=== PATIENT | male | born 1985 | race Caucasian/White ===

== ENCOUNTER 2019-06-12 11:58 | Inpatient (IN) | payer SELFPAY ==
[2019-06-12] MEDS ORDERED: cefTRIAXone\\ROCEPHIN 2 GM VIAL ONE (12:53)
[2019-06-12] MEDS ORDERED: Sodium Chloride 0.9% 100 ML ONE (12:54)
[2019-06-12 13:12] LABS: Hemoglobin 18.1 g/dL (14.0-18.0); Mean Corpuscular HGB CONC 35.6 g/dL (32.0-36.0); Mean Corpuscular Hemoglobin 32.3 pg (27.0-31.0); Mean Corpuscular Volume 90.7 fL (78.0-98.0); Mean Platelet Volume 9.1 fL (7.4-10.4); Platelet Count 165 thou/uL (130-400); RBC Distribution Width 11.3 % (11.5-14.5); White Blood Cell (WBC) Count 23.8 thou/uL (4.8-10.8)
[2019-06-12 13:25] LABS: Bacteria/HPF None Seen HPF (None Seen); Bilirubin Negative (Negative); Blood, Urine 1+ (Negative); Clarity Clear (Clear); Glucose, Urine (Dipstick) Normal (Negative); Leukocyte Negative Leu/uL (Negative); Nitrite Negative (Negative); Protein, Urine (Dipstick) 100 mg/dL (Neg-Trace); RBC/HPF 0-3 HPF (0-3); Squamous Epithelial 0-3 HPF (0-3); Urobilinogen Normal mg/dL (Less than 2); WBC/HPF 0-3 HPF (0-3)
[2019-06-12 13:31] LABS: Band 18 % (5-11); Lymphocytes 7 % (21-51); MDiff Complete? YES; Monocytes 2 % (0-10); Neutrophil 73 % (42-75); Platelet Morphology Comment Appears Adequate; RBC Morphology Normal
--- NOTE | 2019-06-12 13:41 | RAD ---
SINGLE VIEW OF THE CHEST: COMPARISON: None. HISTORY: Sepsis. FINDINGS: Single view of the chest shows a normal sized cardiomediastinal silhouette. There is no evidence of c onsolidation, mass, or pleural effusion. The bones are unremarkable. IMPRESSION: No evidence of acute cardiopulmonary disease. POS: CET
[2019-06-12 13:49] LABS: ALT (SGPT) 66 U/L (8-55); AST (SGOT) 40 U/L (5-34); Albumin 4.7 g/dL (3.5-5.0); Alkaline Phosphatase 135 U/L (40-110); Anion Gap 14 mmol/L (10-20); BUN (Urea Nitrogen) 16 mg/dL (8.9-20.6); Bilirubin, Total 1.5 mg/dL (0.2-1.2); Calc. Creatinine Clearance 0 mL/min (70-130); Calcium 10.2 mg/dL (7.8-10.44); Carbon Dioxide 27 mmol/L (22-29); Chloride 97 mmol/L (98-107); Estimated GFR-MDRD 69; Globulin 4.5 g/dL (2.4-3.5); Glucose 108 mg/dL (70-105); Potassium 3.8 mmol/L (3.5-5.1); Protein, Total 9.2 g/dL (6.0-8.3); Sodium 134 mmol/L (136-145)
[2019-06-12] MEDS ORDERED: Ondansetron ODT 4 MG TAB SL PRN (15:51)
[2019-06-12] MEDS ORDERED: Acetaminophen 325 MG TAB PO PRN (15:51)
[2019-06-12] MEDS ORDERED: Ondansetron PF 4 MG/2 ML Vial IVP PRN ×2 (15:51→16:59)
[2019-06-12 15:55] VITALS: BMI 28.9
[2019-06-12] MEDS: Sodium Chloride 0.9% 1,000 ML IV SCH ×4 (16:11→23:05)
[2019-06-12] MEDS ORDERED: Ondansetron ODT 4 MG TAB PO PRN (16:59)
[2019-06-12] MEDS: Acetaminophen 650 MG/20.3 ML UDCUP PO PRN (17:25)
[2019-06-12] MEDS: Piperacillin/Tazobactam 3.375 GM in Sodium Chloride 0.9% 100 ML IVPB SCH ×2 (17:29→22:59)
[2019-06-12 18:18] LABS: HBCM Index 0.08 S/CO (0-0.79); HBSAg Index 0.19 S/CO (0-0.99); HIV (1/2) Antibody/Antigen Non-Reactive (NonReactive); Hep A IgM AB Non-Reactive (NonReactive); Hep B Surf Ag Non-Reactive S/CO (NonReactive); Hep C IgG Ab Non-Reactive (NonReactive); Hep C Index 0.09 S/CO (0-0.79); Hepatitis B Core IgM Abs Non-Reactive (NonReactive)
--- NOTE | 2019-06-12 21:52 | HP ---
PRIMARY CARE PHYSICIAN: The patient currently does not have a primary care physician. CHIEF COMPLAINT: Pain and swelling in the left leg. HISTORY OF PRESENT ILLNESS: Mr. Oneill is a pleasant 33-year-old gentleman who has no known past medical history. He says that on last Saturday, he was helping to put a sign out in the front of his workplace when he stepped into some ants and he says that he got quite a few ant bites on his legs. Prior to that, he says he was healthy and doing fine. He says then the next day the "venom started to burst and go up into his leg and he noticed severe pain that began to radiate up into his thigh." He also started having fever as well. He also noted a soreness in his throat and he thought he might be having a laryngitis. He has also noted a poor appetite and then noticed redness in his calf as well. As a result of these symptoms, he came to the ER for evaluation. In the ER, he was noted to have severe swelling and redness of the left lower extremity. He was also found to have an elevated white blood cell count and fever and is being admitted with cellulitis and sepsis. The patient otherwise has no other complaints other than he has lots of allergies. He says he is allergic to all types of insects and is allergic to medications that are in a powdered form and he says he is also allergic to Benadryl. REVIEW OF SYSTEMS: All systems were reviewed and are negative except for that mentioned in the history of present illness. PAST MEDICAL HISTORY: Negative. PAST SURGICAL HISTORY: Also negative. ALLERGIES: TO INSECTS AND BENADRYL AND POWDERED MEDICATIONS. SOCIAL HISTORY: He is , has 2 children. 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 He is a former smoker. He quit about 4 years ago. Prior to that, he smoked 3-4 cigarettes a day. He also admits to drinking about 2 beers a day. He denies any illicit drug use. FAMILY HISTORY: His mother had cancer, lung cancer and he says she was a heavy smoker, also had cirrhosis. CURRENT MEDICATIONS: None. Other than he did take a 24 hour Claritin and 200 mg ibuprofen. PHYSICAL EXAMINATION: GENERAL: He is alert and oriented. He appears to be in no acute distress. He is well developed and well nourished. VITAL SIGNS: Blood pressure was 111/69, heart rate 114, respiratory rate of 18, O2 sats 95% on room air, temperature is 102.8. HEENT: Pupils are equal, round, and reactive to light. Extraocular muscles are intact. His sclerae anicteric. Throat there is no erythema. No exudates. NECK: No adenopathy, no bruits. LUNGS: Clear to auscultation. There is no wheezing, no rales, no rhonchi. CARDIOVASCULAR: He has a normal S1 and S2. There is no S3 or S4. No murmurs, clicks, or rubs. ABDOMEN: Soft, nontender, and nondistended. Positive for bowel sounds. There is no rebound, no guarding, no organomegaly. EXTREMITIES: He has significant redness on the entire calf and he has some streaking into the medial thigh. The area is warm and blanchable. He does have palpable dorsalis pedis and posterior tibial pulses. There is no joint effusions or swelling or redness. NEUROLOGIC: The exam is nonfocal. MUSCULOSKELETAL: With the swelling and redness of the left lower extremity, no other significant skin lesions. LABORATORY DATA: White blood cell count is 23.8, hemoglobin 18.1, hematocrit is 50.8, and platelet count is 165. Sodium 134, potassium 3.8, chloride is 97, CO2 is 27, BUN of 16, creatinine 1.23, glucose is 108, total bilirubin was 1.5, AST is 40, ALT is 66, alkaline phosphatase is 135, total protein 9.2. Urinalysis was negative. Chest x-ray has no significant abnormalities. ASSESSMENT: Mr. Oneill is a 33-year-old gentleman who presents with the acute onset of left lower extremity swelling and redness. He has fever and elevated white count and likely this represents a cellulitis with sepsis. What unusual is how extensive the area is and the severity in a patient who has no known past prior medical history. He also has elevated liver function tests as well. He will be admitted to the medical floor, started on IV antibiotics. We will start broad given his symptomatology and broaden the Rocephin to Zosyn. We will also check a hepatitis panel given the increased liver function tests and human immunodeficiency virus, although human immunodeficiency virus or acquired immunodeficiency syndrome is unlikely. Follow up on blood culture results. He will also be placed on IV hydration given his sepsis syndrome. Further recommendations to follow. Job ID: [id number]
[2019-06-13] MEDS: Acetaminophen 650 MG/20.3 ML UDCUP PO PRN ×2 (00:14→23:21)
[2019-06-13] MEDS: Vancomycin HCl 1.25 GM in Sodium Chloride 0.9% 250 ML 250 ML IVPB SCH ×2 (00:16→13:33)
[2019-06-13] MEDS ORDERED: Vancomycin HCl 1 GM in Premix Bag 1 BAG IVPB SCH (01:00)
[2019-06-13] MEDS: Piperacillin/Tazobactam 3.375 GM in Sodium Chloride 0.9% 100 ML IVPB SCH ×4 (05:15→23:21)
[2019-06-13 06:22] LABS: INR-International Normal Ratio 1.2; Prothrombin Time 15.4 SEC (12.0-14.7)
[2019-06-13 06:41] LABS: Band 7 % (5-11); Hemoglobin 13.7 g/dL (14.0-18.0); Hypochromia SLIGHT = 6-15 cells (100X) (0-5/hpf); Lymphocytes 5 % (21-51); MDiff Complete? YES; Mean Corpuscular Hemoglobin 31.2 pg (27.0-31.0); Mean Corpuscular Volume 91.6 fL (78.0-98.0); Mean Platelet Volume 9.2 fL (7.4-10.4); Monocytes 12 % (0-10); Neutrophil 76 % (42-75); Platelet Count 145 thou/uL (130-400); Platelet Morphology Comment Appears Adequate; RBC Distribution Width 11.2 % (11.5-14.5); Red Blood Cell (RBC) Count 4.41 mill/uL (4.70-6.10); White Blood Cell (WBC) Count 18.6 thou/uL (4.8-10.8)
[2019-06-13 06:42] LABS: ALT (SGPT) 76 U/L (8-55); AST (SGOT) 59 U/L (5-34); Albumin 3.4 g/dL (3.5-5.0); Alkaline Phosphatase 105 U/L (40-110); Anion Gap 10 mmol/L (10-20); BUN (Urea Nitrogen) 10 mg/dL (8.9-20.6); Bilirubin, Total 0.9 mg/dL (0.2-1.2); Calc. Creatinine Clearance 140 mL/min (70-130); Calcium 8.3 mg/dL (7.8-10.44); Carbon Dioxide 25 mmol/L (22-29); Chloride 105 mmol/L (98-107); Estimated GFR-MDRD Greater than 90; Globulin 3.2 g/dL (2.4-3.5); Glucose 103 mg/dL (70-105); Potassium 4.1 mmol/L (3.5-5.1); Protein, Total 6.6 g/dL (6.0-8.3); Sodium 136 mmol/L (136-145)
[2019-06-13] MEDS: Enoxaparin Sodium 40 MG/0.4 ML SYRINGE SC SCH (08:23)
[2019-06-13] MEDS: Sodium Chloride 0.9% 1,000 ML IV SCH ×2 (12:36→17:03)
[2019-06-13 12:59] LABS: Vancomycin, Trough 4.1 ug/mL
--- NOTE | 2019-06-13 16:51 | PDOC.HOSPP ---
- Subjective Encounter Date: 06/13/19 Encounter Time: 16:49 Subjective: Mr. Oneill was seen today in follow-up of cellulitis with sepsis. He does not have any new complaints. - Objective Vital Signs & Weight: Vital Signs (12 hours) Temp Pulse Resp BP Pulse Ox 06/13/19 16:32 99.2 F 103 H 16 114/71 97 06/13/19 12:00 99.6 F 99 16 104/69 95 06/13/19 08:15 99.3 F 86 20 106/71 95 06/13/19 08:00 95 Weight Admit Weight 196 lb Weight 196 lb I&O: 06/12/19 06/13/19 06/14/19 06:59 06:59 06:59 Intake Total 2300 Output Total 1500 Balance 800 Result Diagrams: 06/13/19 06:02 06/13/19 06:02 Hospitalist ROS - Medication Medications: Active Medications Generic Name Dose Route Start Last Admin Trade Name Freq PRN Reason Stop Dose Admin Acetaminophen 650 mg 06/12/19 16:44 06/13/19 00:14 Tylenol Elixir PO 650 mg Q6H PRN Administration Fever/Mild Pain Enoxaparin Sodium 40 mg 06/13/19 09:00 06/13/19 08:23 Lovenox SC 40 mg 0900 SHEEBA Administration Sodium Chloride 1,000 mls @ 125 mls/hr 06/12/19 17:00 06/13/19 12:36 Normal Saline 0.9% IV 1,000 mls .Q8H SHEEBA Administration Piperacillin Sod/Tazobactam 100 mls @ 200 mls/hr 06/12/19 18:00 06/13/19 12: 34 Sod 3.375 gm/ Sodium Chloride IVPB 100 mls Q6HR SHEEBA Administration Vancomycin HCl 1.25 gm/ Sodium 250 mls @ 166.67 mls/hr 06/13/19 01:00 13:33 Chloride IVPB 250 mls 0100,1300 SHEEBA Administration - Exam Eye: PERRL Heart: RRR, no murmur, no gallops, no rubs, normal peripheral pulses Respiratory: CTAB, no wheezes, no rales, no ronchi, normal chest expansion, no tachypnea, normal percussion Gastrointestinal: soft, non-tender, non-distended, normal bowel sounds, no palpable masses, no hepatomegaly Extremities: no cyanosis, 1+ LE edema (+ swelling and redness of the left lower extremity, + warmth. good dorsalis pedis pulses, as well as posterior tibial, good capillary refill) Hosp A/P (1) Cellulitis of left lower extremity Code(s): L03.116 - CELLULITIS OF LEFT LOWER LIMB Status: Acute (2) Sepsis Code(s): A41.9 - SEPSIS, UNSPECIFIED ORGANISM Status: Acute - Plan * Cellulitis of the left lower extremity, with sepsis- improving- his leg's appearance has improved, WBC count is down, as well as his temperature. * Will continue the current antibiotics, and continue to monitor his renal function and LFT's ( which are also improving)
[2019-06-14] MEDS: Vancomycin HCl 1.25 GM in Sodium Chloride 0.9% 250 ML 250 ML IVPB SCH (00:14)
[2019-06-14] MEDS: Sodium Chloride 0.9% 1,000 ML IV SCH ×3 (00:15→15:30)
[2019-06-14] MEDS: Piperacillin/Tazobactam 3.375 GM in Sodium Chloride 0.9% 100 ML IVPB SCH ×4 (05:18→23:34)
[2019-06-14 05:32] LABS: #Basophils 0.1 thou/uL (0.0-0.2); #Eosinphils 0.3 thou/uL (0.0-0.7); #Lymphocytes 2.2 thou/uL (1.20-3.40); #Monocytes 1.5 thou/uL (0.11-0.59); #Neutrophils 11.1 thou/uL (1.40-6.50); %Basophils 0.5 % (0.0-1.0); %Eosinophils 2.1 % (0.0-10.0); %Lymphocytes 14.2 % (21.0-51.0); %Monocytes 9.9 % (0.0-10.0); %Neutrophils 73.3 % (42.0-75.0); Hemoglobin 13.8 g/dL (14.0-18.0); Mean Corpuscular HGB CONC 34.1 g/dL (32.0-36.0); Mean Corpuscular Hemoglobin 31.1 pg (27.0-31.0); Mean Corpuscular Volume 91.5 fL (78.0-98.0); Mean Platelet Volume 8.8 fL (7.4-10.4); Platelet Count 162 thou/uL (130-400); RBC Distribution Width 11.3 % (11.5-14.5); Red Blood Cell (RBC) Count 4.43 mill/uL (4.70-6.10); White Blood Cell (WBC) Count 15.1 thou/uL (4.8-10.8)
[2019-06-14 05:51] LABS: Anion Gap 9 mmol/L (10-20); BUN (Urea Nitrogen) 6 mg/dL (8.9-20.6); Calc. Creatinine Clearance 160 mL/min (70-130); Calcium 8.6 mg/dL (7.8-10.44); Carbon Dioxide 26 mmol/L (22-29); Chloride 107 mmol/L (98-107); Estimated GFR-MDRD Greater than 90; Glucose 97 mg/dL (70-105); Sodium 138 mmol/L (136-145)
[2019-06-14 10:02] LABS: ALT (SGPT) 98 U/L (8-55); AST (SGOT) 59 U/L (5-34); Albumin 3.3 g/dL (3.5-5.0); Alkaline Phosphatase 114 U/L (40-110); Bilirubin, Direct 0.3 mg/dL (0.1-0.3); Bilirubin, Total 0.6 mg/dL (0.2-1.2); Protein, Total 6.5 g/dL (6.0-8.3)
[2019-06-14] MEDS: Enoxaparin Sodium 40 MG/0.4 ML SYRINGE SC SCH (10:37)
[2019-06-14 12:46] LABS: Vancomycin, Trough 5.5 ug/mL
--- NOTE | 2019-06-14 12:59 | PDOC.HOSPP ---
- Subjective Encounter Date: 06/14/19 Encounter Time: 12:57 Subjective: Mr. Oneill was seen today in follow-up of cellulitis of the left leg. He notes less pain when he bares weight on his leg. - Objective Vital Signs & Weight: Vital Signs (12 hours) Temp Pulse Resp BP Pulse Ox 06/14/19 08:19 98.7 F 89 16 116/78 96 06/14/19 04:00 98.7 F 78 18 104/69 96 Weight Admit Weight 196 lb Weight 196 lb I&O: 06/13/19 06/14/19 06/15/19 06:59 06:59 06:59 Intake Total 2300 2200 Output Total 1500 1800 Balance 800 400 Result Diagrams: 06/14/19 05:18 06/14/19 05:18 Hospitalist ROS - Medication Medications: Active Medications Generic Name Dose Route Start Last Admin Trade Name Freq PRN Reason Stop Dose Admin Acetaminophen 650 mg 06/12/19 16:44 06/13/19 23:21 Tylenol Elixir PO 650 mg Q6H PRN Administration Fever/Mild Pain Enoxaparin Sodium 40 mg 06/13/19 09:00 06/14/19 10:37 Lovenox SC 40 mg 0900 SHEEBA Administration Sodium Chloride 1,000 mls @ 125 mls/hr 06/12/19 17:00 06/14/19 12:01 Normal Saline 0.9% IV Not Given .Q8H SHEEBA Piperacillin Sod/Tazobactam 100 mls @ 200 mls/hr 06/12/19 18:00 06/14/19 12: 02 Sod 3.375 gm/ Sodium Chloride IVPB 100 mls Q6HR SHEEBA Administration Vancomycin HCl 1.25 gm/ Sodium 250 mls @ 166.67 mls/hr 06/13/19 01:00 00:14 Chloride IVPB 250 mls 0100,1300 SHEEBA Administration - Exam Eye: PERRL Heart: RRR, no murmur, no gallops, no rubs, normal peripheral pulses Respiratory: CTAB, no wheezes, no rales, no ronchi, normal chest expansion, no tachypnea, normal percussion Gastrointestinal: soft, non-tender, non-distended, normal bowel sounds Extremities: no cyanosis, 1+ LE edema (edema, and redness in the left leg, mild warmth, and erythema- which has improved from yesterday) Hosp A/P (1) Cellulitis of left lower extremity Code(s): L03.116 - CELLULITIS OF LEFT LOWER LIMB Status: Acute (2) Sepsis Code(s): A41.9 - SEPSIS, UNSPECIFIED ORGANISM Status: Acute - Plan * Cellulitis of the left lower extremity, with sepsis- continues to improve- temperature,and WBC count continues to trend down * Will continue the current antibiotics * Elevated LFT's - ? etiology- i would have expected them to improve by now if related to sepsis- will check an abdominal ultrasound
[2019-06-14] MEDS: Vancomycin 1.5 GRAM/300 ML BAG 1.5 GM in Premix Bag 1 BAG IVPB SCH ×2 (15:33→21:50)
[2019-06-15] MEDS: Sodium Chloride 0.9% 1,000 ML IV SCH ×3 (04:40→17:15)
[2019-06-15 05:34] LABS: #Eosinphils 0.5 thou/uL (0.0-0.7); #Lymphocytes 2.3 thou/uL (1.20-3.40); #Neutrophils 10.4 thou/uL (1.40-6.50); %Basophils 0.2 % (0.0-1.0); %Eosinophils 3.5 % (0.0-10.0); %Lymphocytes 15.9 % (21.0-51.0); %Neutrophils 73.3 % (42.0-75.0); Hemoglobin 13.4 g/dL (14.0-18.0); Mean Corpuscular HGB CONC 33.4 g/dL (32.0-36.0); Mean Corpuscular Hemoglobin 30.5 pg (27.0-31.0); Mean Corpuscular Volume 91.2 fL (78.0-98.0); Mean Platelet Volume 8.8 fL (7.4-10.4); Platelet Count 186 thou/uL (130-400); RBC Distribution Width 11.3 % (11.5-14.5); Red Blood Cell (RBC) Count 4.38 mill/uL (4.70-6.10); White Blood Cell (WBC) Count 14.2 thou/uL (4.8-10.8)
[2019-06-15] MEDS: Piperacillin/Tazobactam 3.375 GM in Sodium Chloride 0.9% 100 ML IVPB SCH ×3 (05:35→17:50)
[2019-06-15 05:54] LABS: ALT (SGPT) 110 U/L (8-55); AST (SGOT) 56 U/L (5-34); Albumin 3.4 g/dL (3.5-5.0); Alkaline Phosphatase 113 U/L (40-110); Anion Gap 10 mmol/L (10-20); BUN (Urea Nitrogen) 7 mg/dL (8.9-20.6); Bilirubin, Total 0.5 mg/dL (0.2-1.2); Calc. Creatinine Clearance 160 mL/min (70-130); Calcium 8.9 mg/dL (7.8-10.44); Carbon Dioxide 25 mmol/L (22-29); Chloride 106 mmol/L (98-107); Estimated GFR-MDRD Greater than 90; Globulin 3.4 g/dL (2.4-3.5); Glucose 91 mg/dL (70-105); Potassium 3.7 mmol/L (3.5-5.1); Protein, Total 6.8 g/dL (6.0-8.3); Sodium 137 mmol/L (136-145)
[2019-06-15] MEDS: Vancomycin 1.5 GRAM/300 ML BAG 1.5 GM in Premix Bag 1 BAG IVPB SCH ×4 (06:07→21:13)
[2019-06-15] MEDS: Enoxaparin Sodium 40 MG/0.4 ML SYRINGE SC SCH (08:28)
--- NOTE | 2019-06-15 09:47 | ULT ---
ABDOMINAL ULTRASOUND: Date: 06/15/19 HISTORY: Elevated liver function tests. COMPARISON: None. FINDINGS: Pancreas obscured by bowel gas. Heterogeneous echotexture of the liver may be due to hepatic steatosis or hepatocellular disease. Sub sequent limited evaluation for hepatic masses and intrahepatic biliary dilatation. The contour of the hepatic margin appears to be maintained. Visualized aorta is grossly unremarkable. Spleen has a normal echotexture. There is splenomegaly with maximum dimension of 14.2 cm. Kidneys have a normal echotexture. Bilaterally, no hydronephrosis. Right kidney measures 11.6 x 4.0 x 5.4 cm. Left kidney measures 12.7 x 4.0 x 4.9 cm. Common bile duct diameter is 0.6 cm. No sonographic evidence of cholelithiasis, gallbladder wall thickening, or pericholecystic fluid. Neg ative Bradford's sign. Portal vein is patent. Evaluation of IVC is limited due to bowel gas. IMPRESSION: 1. Heterogeneous echotexture of liver likely due to hepatic steatosis or hepatocellular disease. If there is concern for hepatic masses, liver mass protocol CT can be performed. 2. Common bile duct diameter at the upper limits of normal. if there is concern for choledocholithia sis, consider MRCP or ERCP. POS: SJ
--- NOTE | 2019-06-15 10:54 | PDOC.HOSPP ---
- Subjective Encounter Date: 06/15/19 Encounter Time: 10:53 Subjective: Mr. Oneill was seen today in follow-up of cellulitis of the left leg. He notes continued improvement in the swelling and redness. - Objective Vital Signs & Weight: Vital Signs (12 hours) Temp Pulse Resp BP Pulse Ox 06/15/19 08:05 98.8 F 83 16 137/87 96 Weight Admit Weight 196 lb Weight 196 lb I&O: 06/14/19 06/15/19 06/16/19 06:59 06:59 06:59 Intake Total 2200 Output Total 1800 Balance 400 Result Diagrams: 06/15/19 04:44 06/15/19 04:44 Hospitalist ROS - Medication Medications: Active Medications Generic Name Dose Route Start Last Admin Trade Name Freq PRN Reason Stop Dose Admin Acetaminophen 650 mg 06/12/19 16:44 06/13/19 23:21 Tylenol Elixir PO 650 mg Q6H PRN Administration Fever/Mild Pain Enoxaparin Sodium 40 mg 06/13/19 09:00 06/15/19 08:28 Lovenox SC 40 mg 0900 SHEEBA Administration Sodium Chloride 1,000 mls @ 125 mls/hr 06/12/19 17:00 06/15/19 08:29 Normal Saline 0.9% IV Not Given .Q8H SHEEBA Piperacillin Sod/Tazobactam 100 mls @ 200 mls/hr 06/12/19 18:00 06/15/19 05: 35 Sod 3.375 gm/ Sodium Chloride IVPB 100 mls Q6HR SHEEBA Administration Vancomycin 1.5 GRAM/300 ML BAG 300 mls @ 200 mls/hr 06/15/19 06:00 06/15/19 06:35 1.5 gm/ Device IVPB Not Given Q8HR SHEEBA - Exam Eye: PERRL, anicteric sclera Heart: RRR, no murmur, no gallops, no rubs, normal peripheral pulses Respiratory: CTAB, no wheezes, no rales, no ronchi, normal chest expansion Gastrointestinal: soft, non-tender, non-distended, normal bowel sounds Extremities: 1+ LE edema (+ erythema and swelling in the left leg- improving good pulses) Hosp A/P (1) Cellulitis of left lower extremity Code(s): L03.116 - CELLULITIS OF LEFT LOWER LIMB Status: Acute (2) Sepsis Code(s): A41.9 - SEPSIS, UNSPECIFIED ORGANISM Status: Acute (3) Elevated liver function tests Code(s): R94.5 - ABNORMAL RESULTS OF LIVER FUNCTION STUDIES Status: Acute - Plan * Cellulitis of the left lower extremity- improving * Will continue the current antibiotics- will trnasition to oral antibiotic on discharge * Elevated LFT's - ? etiology- his US of the abdomen was significant for steatoheptitis- but LFT's have not improved- will consult GI prior to discharge
--- NOTE | 2019-06-15 12:30 | CON ---
DATE OF CONSULTATION: 06/15/2019 REQUESTING PHYSICIAN: Dr. James. REASON FOR CONSULTATION: Elevated LFTs. HISTORY OF PRESENT ILLNESS: Cong Oneill is a very pleasant 33-year-old man, who was admitted to the hospital 3 days ago with left lower extremity cellulitis. He had had a bunch of ant bites on that leg over week before, but presented with fever and sepsis syndrome with a large area of cellulitis on the left lower extremity. He has been treated with broad-spectrum antibiotics and has had clinical improvement. Upon admission, he was noted to have leukocytosis and also some LFT elevation with total bilirubin 1.5, alkaline phosphatase 135, AST 40, and ALT 66. His LFTs remained elevated during this admission, though to a modest degree. Current AST is 56, ALT 110, alkaline phosphatase 113, total bilirubin down to 0.5. Viral hepatitis serologies are negative. The patient has no prior history of liver disease or gallbladder illness. He has no abdominal symptoms. No jaundice. No nausea or abdominal pain. He does have 2 beers a day. He estimates he has gained about 80 pounds in the past couple of years. Ultrasound demonstrated fatty liver only. PAST MEDICAL HISTORY: None. PAST SURGICAL HISTORY: None. ALLERGIES: DIPHENHYDRAMINE. SOCIAL HISTORY: He is a former smoker. No drug use. He will have about 2 beers per day. FAMILY HISTORY: His mother has cirrhosis. MEDICATIONS: Outpatient medications: 1. Ibuprofen p.r.n. 2. Claritin p.r.n. Inpatient medications: 1. Tylenol p.r.n. 2. Lovenox. 3. IV Zosyn. 4. IV vancomycin. PHYSICAL EXAMINATION: VITAL SIGNS: Temperature 98.8, pulse 83, blood pressure 137/87, and 96% oxygen saturation on room air. GENERAL: No acute distress. HEART: Regular rate and rhythm. LUNGS: Clear to auscultation bilaterally. ABDOMEN: Nondistended. Bowel sounds present. Soft and nontender to deep palpation throughout. No masses or organomegaly appreciated. EXTREMITIES: No peripheral edema. SKIN: No jaundice. No rashes were palpable. HEENT: Eyes; no scleral icterus. Extraocular movements intact. ENT; mucous membranes moist. No oral lesions. LYMPH: No submandibular or supraclavicular lymphadenopathy. THYROID: Nontender to palpation. NEUROLOGIC: Cranial nerves 2 through 12 intact bilaterally. No focal deficits. LABORATORY STUDIES: Viral hepatitis serologies are all negative. HIV is negative. UA negative. Sodium 137, potassium 3.7, BUN 7, creatinine 0.84. Total bilirubin 0.5, alkaline phosphatase 113, AST 56, ALT 110, and albumin 3.4. INR 1.2. WBC down to 14.2, hemoglobin 13.4, and platelets 186. IMAGING STUDIES: Abdominal ultrasound demonstrates heterogeneous appearing liver with normal liver contour. Common bile duct is 6 mm. Spleen is 14.2 cm. ASSESSMENT AND PLAN: 1. Elevated LFTs. 2. Fatty liver disease. 3. Daily alcohol use. 4. Cellulitis/sepsis on presentation. I had a long discussion with Mr. Oneill about his LFT elevation. This is somewhat mild and overall stable. There is no clinical or laboratory evidence of cirrhosis. Abdominal ultrasound shows fatty liver. I think this is likely just secondary to fatty liver disease, which may be in part due to his daily alcohol use, combined with his sepsis syndrome. The mild LFT elevation does not really surprise me in this context. It would be reasonable to get further liver laboratory workup including autoimmune markers, iron studies, and ceruloplasmin. I have gone ahead and order these. These can be followed up on an outpatient basis. We will plan to see him back in GI clinic in about 3 weeks with repeat LFTs at that time. I asked him to stop all alcohol in the meantime. No barriers to hospital discharge from a GI perspective. Thank you for the consultation. GI will sign off. Please call back anytime with questions or concerns. Job ID: [id number]
[2019-06-15 12:43] LABS: Iron 38 ug/dL (65-175); Iron Binding Capacity, Total 246 mcg/dL (261-462)
[2019-06-15 14:11] LABS: ANA Symphony (Qualitative) Negative (Negative); ANA Symphony (Quantitative) 0.2 Ratio (< 0.7 Negative); dsDNA IgG Antibody 0.9 IU/mL (<10 Negative)
[2019-06-15 14:12] LABS: EliA Vaculitis New Method **** NEW METHOD ****; Mitochondrial Ab 0.8 U/mL (<4 Negative)
[2019-06-16] MEDS: Piperacillin/Tazobactam 3.375 GM in Sodium Chloride 0.9% 100 ML IVPB SCH ×3 (00:29→12:32)
[2019-06-16 05:53] LABS: #Basophils 0.1 thou/uL (0.0-0.2); #Eosinphils 0.6 thou/uL (0.0-0.7); #Lymphocytes 2.5 thou/uL (1.20-3.40); #Monocytes 1.1 thou/uL (0.11-0.59); #Neutrophils 9.8 thou/uL (1.40-6.50); %Basophils 0.4 % (0.0-1.0); %Eosinophils 4.1 % (0.0-10.0); %Lymphocytes 17.8 % (21.0-51.0); %Monocytes 8.1 % (0.0-10.0); %Neutrophils 69.6 % (42.0-75.0); Hemoglobin 15.3 g/dL (14.0-18.0); Mean Corpuscular HGB CONC 34.4 g/dL (32.0-36.0); Mean Corpuscular Hemoglobin 31.3 pg (27.0-31.0); Mean Platelet Volume 8.5 fL (7.4-10.4); Platelet Count 231 thou/uL (130-400); RBC Distribution Width 11.4 % (11.5-14.5); Red Blood Cell (RBC) Count 4.88 mill/uL (4.70-6.10)
[2019-06-16] MEDS: Vancomycin 1.5 GRAM/300 ML BAG 1.5 GM in Premix Bag 1 BAG IVPB SCH (06:15)
[2019-06-16 06:23] LABS: Anion Gap 18 mmol/L (10-20); BUN (Urea Nitrogen) 9 mg/dL (8.9-20.6); Calc. Creatinine Clearance 158 mL/min (70-130); Calcium 9.5 mg/dL (7.8-10.44); Carbon Dioxide 17 mmol/L (22-29); Chloride 107 mmol/L (98-107); Estimated GFR-MDRD Greater than 90; Glucose 87 mg/dL (70-105); Sodium 138 mmol/L (136-145)
[2019-06-16] MEDS: Enoxaparin Sodium 40 MG/0.4 ML SYRINGE SC SCH (09:01)
[2019-06-16 13:23] VITALS: BP 128/85; TEMP 98.4
[2019-06-16 13:29] LABS: Vancomycin, Trough 25.7 ug/mL
[2019-06-16] MEDS ORDERED: Vancomycin HCl 1 GM in Premix Bag 1 BAG IVPB SCH (14:00)
--- NOTE | 2019-06-16 15:57 | PDOC.HOSPP ---
- Subjective Encounter Date: 06/16/19 Encounter Time: 15:56 Subjective: Mr. Oneill was seen today in follow-up of cellulitis of the left leg. He does not have any complaints. - Objective Vital Signs & Weight: Vital Signs (12 hours) Temp Pulse Resp BP BP Pulse Ox 06/16/19 12:00 98.4 F 90 16 128/85 96 06/16/19 08:00 98.9 F 86 16 116/80 96 06/16/19 04:00 98.4 F Weight Admit Weight 196 lb Weight 196 lb I&O: 06/15/19 06/16/19 06/17/19 06:59 06:59 06:59 Intake Total 1440 960 Balance 1440 960 Result Diagrams: 06/16/19 05:39 06/16/19 05:39 Hospitalist ROS - Medication Medications: Active Medications Generic Name Dose Route Start Last Admin Trade Name Freq PRN Reason Stop Dose Admin Acetaminophen 650 mg 06/12/19 16:44 06/13/19 23:21 Tylenol Elixir PO 650 mg Q6H PRN Administration Fever/Mild Pain Enoxaparin Sodium 40 mg 06/13/19 09:00 06/16/19 09:01 Lovenox SC 40 mg 0900 SHEEBA Administration Piperacillin Sod/Tazobactam 100 mls @ 200 mls/hr 06/12/19 18:00 06/16/19 12: 32 Sod 3.375 gm/ Sodium Chloride IVPB 100 mls Q6HR SHEEBA Administration Vancomycin HCl 1 gm/ Device 200 mls @ 200 mls/hr 06/16/19 14:00 06/16/19 14: 21 IVPB 200 mls Q8HR SHEEBA Administration - Exam Eye: PERRL Heart: RRR, no murmur, no gallops, no rubs, normal peripheral pulses Respiratory: CTAB, no wheezes, no rales, no ronchi, normal chest expansion Gastrointestinal: soft, non-tender, non-distended, normal bowel sounds Extremities: no cyanosis, 1+ LE edema (+ erythema and warmth much improved) Hosp A/P (1) Cellulitis of left lower extremity Code(s): L03.116 - CELLULITIS OF LEFT LOWER LIMB Status: Acute (2) Sepsis Code(s): A41.9 - SEPSIS, UNSPECIFIED ORGANISM Status: Acute (3) Elevated liver function tests Code(s): R94.5 - ABNORMAL RESULTS OF LIVER FUNCTION STUDIES Status: Acute - Plan * Cellulitis of the left lower extremity- much improved * Stable for discharge home
--- NOTE | 2019-06-17 05:07 | DIS ---
DATE OF ADMISSION: 06/12/2019 DATE OF DISCHARGE: 06/16/2019 PRIMARY CARE PHYSICIAN: None. DISCHARGE DISPOSITION: Home. DISCHARGE DIAGNOSES: 1. Cellulitis of the left lower extremity. 2. Sepsis secondary to #1. 3. Hepatosteatosis. DISCHARGE MEDICATIONS: Include Augmentin 875 mg one tablet twice a day for 7 days. PROCEDURES DONE DURING ADMISSION: The patient had an abdominal ultrasound which was significant for heterogeneous echotexture of the liver due to hepatic steatosis. The common bile duct was on the upper limits of normal. CODE STATUS: Full code. ALLERGIES: TO DIPHENHYDRAMINE. HOSPITAL COURSE: Mr. Oneill is a pleasant 33-year-old gentleman who presented to the emergency room complaining of severe pain in the left lower extremity after he stepped on an ant mound working outside. He noticed redness and swelling in the legs soon after and developed a severe cellulitis of the lower extremity. His white count was elevated at 23.8 thousand. He had elevation of his liver function tests, which is likely as a result of the sepsis. He was admitted and started on broad-spectrum IV antibiotics and had improvement in both his white blood cell count. He had defervescence of his fever and the appearance of the leg has improved quite a bit. He was seen by Gastroenterology due to concern that the liver function tests were not resolving as quickly as would be expected. However, it was felt that this was likely consistent with the sepsis. However, prior to discharge, lab work was drawn including an GEOFF screen as well as an anti-smooth muscle antibody, which was pending at the time of discharge, an anti-mitochondrial antibody as well and these will be followed up with Dr. Lee in the outpatient setting. He was also instructed on diet and exercise with regard to the steatosis of the liver and to cut back on his alcohol intake. He was also instructed on warning signs of fever, worsening redness or pain in the leg, to return to [facility] the ER [facility]. He was also instructed to take a probiotic along with his Augmentin. Job ID: [id number]
== END 2019-06-16 17:31 | disposition home or self-care (01) | DRG 872 ==
LOC: ERS 11:58 → T4-A 14:41
PROVIDERS: ADMIT Internal Medicine; ATTEND Internal Medicine
DX: A41.9 Sepsis, unspecified organism (principal); L03.116 Cellulitis of left lower limb; K76.0 Fatty (change of) liver, not elsewhere classified; Z88.8 Allergy status to other drugs, medicaments and biological substances; Z87.891 Personal history of nicotine dependence
CPT/HCPCS: 36415; 71045; 80048; 80053; 80074; 80076; 80202; 81003; 81015; 82390; 82728; 83516; 83540; 83550; 83605; 85025; 85610; 86038; 86225; 87040; 87086; 87389; 87804; 93005; 93975; 96361; 96365; J0696; J1650; J2543; J3370; J3490; J7050